=== PATIENT | male | born 1980 | race African-American/Black ===

== ENCOUNTER 2019-06-02 13:31 | Emergency (ER) | payer SELFPAY ==
[2019-06-02 13:40] VITALS: BP 136/87; PULSE 73; TEMP 97.9; BMI 25.5
[2019-06-02] MEDS ORDERED: ACETAMINOPHEN 325 MG TABLET (FP) PO ONE (13:56)
[2019-06-02] MEDS ORDERED: ACETAMINOPHEN 325 MG TABLET (FP) ONE ×2 (13:56)
--- NOTE | 2019-06-02 13:59 | PDOC ---
History of Present Illness - General Chief Complaint: Pain Stated Complaint: FLANK PAIN Time Seen by Provider: 06/02/19 13:38 History Source: Patient Exam Limitations: No Limitations - History of Present Illness Initial Comments: 06/02/19 13:56 39-year-old male denies past medical history presents complaining of right upper quadrant pain for 6 days, worsening over the past 3 days. Noticed pain after he left work. Denies direct trauma, fever, chills, nausea, vomiting, diarrhea, back pain, recent travel, urinary complaints or any other symptoms. Patient lifts heavy objects at work and reports he has been working more than usual during the holidays. Took acetaminophen p.o. yesterday x1 dose with no relief of symptoms. Able to eat and drink normally. ROS: GENERAL/CONSTITUTIONAL: No fever, chills, weakness, dizziness HEAD, EYES, EARS, NOSE AND THROAT: No changes in vision, No ear pain or discharge, No sore throat CARDIOVASCULAR: No chest pain RESPIRATORY: No shortness of breath or cough GASTROINTESTINAL: Right upper quadrant abdominal pain, denies nausea, vomiting, diarrhea or constipation GENITOURINARY: No dysuria MUSCULOSKELETAL: No neck or back pain SKIN: No rash NEUROLOGIC: No headache, vertigo, loss of consciousness, or loss of sensation PE: GENERAL: well-appearing, NAD HEAD: NCAT EYES: Pupils equal, round and reactive to light, sclera anicteric, conjunctiva clear ENT: pharynx: no erythema, no exudate, uvula midline NECK: supple CHEST: nontender RESP: clear, no w/r/r CARDIO: rrr, no m/g/r ABD: +BS, soft, right upper quadrant tenderness to palpation, no rebound no guarding BACK: no midline spinal ttp, no CVAT EXTREMITIES: Normal range of motion, no edema NEUROLOGICAL: Normal speech, normal gait SKIN: Warm, Dry 06/02/19 14:02 Past History - Past Medical History Allergies/Adverse Reactions: Allergies Allergy/AdvReac Type Severity Reaction Status Date / Time No Known Allergies Allergy Verified 06/02/19 13:34 COPD: No - Psycho Social/Smoking Cessation Hx Smoking History: Never smoked Hx Alcohol Use: No Drug/Substance Use Hx: No *Physical Exam - Vital Signs Last Vital Signs Temp Pulse Resp BP Pulse Ox 97.9 F 73 18 136/87 06/02/19 13:34 06/02/19 13:34 06/02/19 13:34 06/02/19 13:34 ED Treatment Course - RADIOLOGY Radiology Studies Ordered: Category Date Time Status CHEST PA & LAT [RAD] Stat Radiology 06/02/19 13:54 Ordered ABDOMEN US -LIMITED [US] Stat Ultrasound 06/02/19 13:54 Ordered Medical Decision Making - Medical Decision Making 06/02/19 13:59 39-year-old male with right upper quadrant pain x6 days. Right upper quadrant tenderness to palpation Acetaminophen 650 mg x 1 dose ordered Chest x-ray Limited abdominal ultrasound ordered Reassess 06/02/19 15:34 Chest x-ray and abdominal ultrasound normal Discussed these results with patient Pain slightly improved after p.o. acetaminophen and IM Toradol Return precautions given Discharge - Discharge Information Problems reviewed: Yes Clinical Impression/Diagnosis: Right upper quadrant pain Condition: Stable Disposition: HOME - Follow up/Referral - Patient Discharge Instructions Additional Instructions: Alternate between acetaminophen and ibuprofen every 6 hours Follow-up with your doctor within 1 week Return to ED if fever, chills, worsening abdominal pain, nausea, vomiting, diarrhea or any worsening symptom - Post Discharge Activity
[2019-06-02] MEDS ORDERED: KETOROLAC TROMETHAMINE 30 MG/1 ML VIAL IM ONE (15:07)
[2019-06-02] MEDS ORDERED: KETOROLAC TROMETHAMINE 30 MG/1 ML VIAL ONE (15:15)
== END 2019-06-02 15:41 | disposition home or self-care (01) ==
LOC: JER 13:31 → JERFT 13:31
CPT/HCPCS: 71046-TC-FY; 76705-TC; 99281-25